=== PATIENT | male | born 1985 | race Caucasian/White ===

== ENCOUNTER 2019-11-16 10:01 | Emergency (ER) | payer SELFPAY ==
[~2019-11-16] VITALS: Ht 157.5 cm; Wt 61.2 kg
[2019-11-16 10:02] VITALS: BP_SYST 128
--- NOTE | 2019-11-16 12:37 | NUR ---
Patient to ER bed 04 to gown for evaluation. Side rails up.
--- NOTE | 2019-11-16 12:38 | NUR ---
Pt brought by self,A&Ox4, pt presents to ER with LAC on L index finger after he was cutting a tree yesterday, bleeding controlled, cap refill <3.
--- NOTE | 2019-11-16 12:40 | NUR ---
Angelo Torres at bedside examining patient
[2019-11-16] MEDS ORDERED: BACITRACIN 1 GM OINT TP ONE (13:00)
[2019-11-16] MEDS ORDERED: CEPHALEXIN 500 MG CAPSULE PO ONE (13:00)
[2019-11-16] MEDS ORDERED: IBUPROFEN 600 MG TABLET PO ONE (13:00)
[2019-11-16] MEDS ORDERED: DIPH-TET-PERTUS Vaccine 0.5 ML VIAL (ADACEL) I.M. ONE (13:00)
[2019-11-16 13:36] VITALS: BP_SYST 128
--- NOTE | 2019-11-16 13:36 | NUR ---
Patient given written and verbal discharge instructions and verbalizes understanding. ER MD discussed with patient the results and treatment provided. Patient in stable condition. ID arm band removed. Patient educated on pain management and to follow up with PMD. Pain Scale 2/10 . Opportunity for questions provided and answered. Medication side effect fact sheet provided.
--- NOTE | 2019-11-16 13:36 | NUR ---
Patient given written and verbal discharge instructions and verbalizes understanding. ER MD discussed with patient the results and treatment provided. Patient in stable condition. ID arm band removed. IV catheter removed intact and dressing applied, no active bleeding. Rx of given. Patient educated on pain management and to follow up with PMD. Pain Scale . Opportunity for questions provided and answered. Medication side effect fact sheet provided.
== END 2019-11-16 13:36 | disposition home or self-care (01) ==
LOC: SED 10:01
DX: S61.210A Laceration without foreign body of right index finger without damage to nail, initial encounter (principal); M79.89 Other specified soft tissue disorders; W45.8XXA Other foreign body or object entering through skin, initial encounter; Y93.89 Activity, other specified; Y92.89 Other specified places as the place of occurrence of the external cause; Y99.8 Other external cause status
CPT/HCPCS: 11740; 90471; 90715; 99284; J7030

== ENCOUNTER 2020-10-13 18:03 | Emergency (ER) | payer SELFPAY ==
[~2020-10-13] VITALS: Ht 170.2 cm; Wt 72.6 kg
[2020-10-13 18:03] VITALS: BP_SYST 137
== END 2020-10-13 18:38 | disposition home or self-care (01) ==
LOC: SED 18:03
DX: K05.10 Chronic gingivitis, plaque induced (principal); R19.6 Halitosis
CPT/HCPCS: 99281